=== PATIENT | male | born 1965 ===

== ENCOUNTER → 2018-11-28 13:40 | Outpatient (REF) | payer OTHER, SELFPAY ==
[2018-11-28 13:58] LABS: Hemoglobin 15.2 g/dL (13.5-17.5)
[2018-11-28 14:39] LABS: Ferritin 36.4 ng/mL (17.9-464)
== END ==
LOC: LAB 13:40
PROVIDERS: Visit Provider Family Medicine
DX: E83.110 Hereditary hemochromatosis (principal)
CPT/HCPCS: 36415; 82728; 85014; 85018